=== PATIENT | male | born 1990 | race Caucasian/White ===

== ENCOUNTER 2016-09-17 20:15 | Observation (INO) | payer SELFPAY ==
[~2016-09-17] VITALS: Ht 185.4 cm; Wt 63.9 kg
[2016-09-17 20:36] LABS: CARBON DIOXIDE (BICARBONATE) 28.9 MEQ/L (20-31); MCH 30.7 PG (29.0-34.0); MCHC 31.5 G/DL (30.0-36.0); MCV 97.3 FL (86-99); MEAN PLAT.VOLUME 10.5 uM^3 (9.0-12.4); PLATELET COUNT 243 K/uL (156-360); RBC DIS.WIDTH-CV 13.8 % (11.8-14.6); RBC DIS.WIDTH-SD 49.9 % (39-53); RED BLOOD COUNT 4.11 M/uL (4.00-5.50); WHITE BLOOD COUNT 18.6 K/uL (4.1-10.2)
[2016-09-17 20:45] LABS: CHLORIDE 105 mEq/L (99-109); POTASSIUM 4.7 mEq/L (3.7-5.4); SODIUM 140 mEq/L (136-147)
[2016-09-17 20:47] LABS: GLUCOSE 264 mg/dL (70-99)
[2016-09-17 20:48] LABS: ANION GAP 15 MEQ/L (2-14)
[2016-09-17 20:49] LABS: TOTAL BILIRUBIN 0.6 mg/dL (0.0-1.0)
[2016-09-17 20:50] LABS: SERUM ETHYL ALCOHOL < 10 mg/dL
[2016-09-17 20:51] LABS: ALKALINE PHOSPHATASE 83 IU/L (3-129)
[2016-09-17 20:53] LABS: UREA NITROGEN (BUN) 16 mg/dL (9-23)
[2016-09-17 20:54] LABS: SALICYLATE < 5.0 MG/DL (15-30)
[2016-09-17 20:56] LABS: GFR ESTIMATE (CALCULATED) > 59 mL/min/
[2016-09-17 21:33] LABS: BASE EXCESS -1.6 mEq/L (-3 to +3); BICARBONATE 25.8 mEq/L (22-26); CARBOXY HGB 3.8 % (0-5); COMMENTS - BLOOD GASES C+NA; DEVICE ROOM AIR; METHEMOGLOBIN 1.3 % (0-1.5); PCO2 55 mm Hg (35-45); PO2 73 mm Hg (80-100); SITE RB; TOTAL RESP RATE 12 resp/min; pH 7.28 (7.35-7.45)
[2016-09-18 02:39] LABS: ADD MIUA? NO; BILIRUBIN NEGATIVE; BLOOD NEGATIVE; COLOR YELLOW ((YELLOW)); GLUCOSE (STRIP) 150; KETONES 20; LEUKOCYTES NEGATIVE; NITRITE NEGATIVE; PROTEIN (STRIP) 30; SPECIFIC GRAVITY 1.016 (1.000-1.030); UROBILINOGEN 0.2 MG/DL (0.2-1.0)
[2016-09-18 02:51] LABS: AMPHETAMINE PRESUMPTIVE POSITIVE (500 ng/mL); COCAINE NEGATIVE (150 ng/mL); METHAMPHETAMINE NEGATIVE (500 ng/mL); OPIATES (MORPHINE) NEGATIVE (100 ng/mL); PHENCYCLIDINE NEGATIVE (25 ng/mL); THC CANNABINOIDS PRESUMPTIVE POSITIVE (50 ng/mL)
[2016-09-18 02:52] LABS: ADD MEDTOX COMMENT Y; BARBITURATES NEGATIVE (200 ng/mL); BENZODIAZEPINES PRESUMPTIVE POSITIVE (150 ng/mL); INTERNAL CONTROLS VALID? YES; METHADONE NEGATIVE (200 ng/mL); OXYCODONE NEGATIVE (100 ng/mL); PROPOXYPHENE NEGATIVE (300 ng/mL); TRICYCLIC ANTIDEPRESSANTS NEGATIVE (300 ng/mL)
[2016-09-18 03:27] LABS: BENZODIAZEPINES, URINE SCREEN POSITIVE (200 ng/mL)
[2016-09-18 03:46] VITALS: BP 111/69
[2016-09-18 08:00] VITALS: BP 105/65
[2016-09-18 10:13] LABS: ANION GAP 5 MEQ/L (2-14); CHLORIDE 108 MEQ/L (99-109); GFR ESTIMATE (CALCULATED) > 59 mL/min/; GLUCOSE 82 mg/dL (70-99); POTASSIUM 4.1 MEQ/L (3.7-5.4); SAMPLE HEMOLYSIS CHECK 0; SAMPLE ICTERIC CHECK 0; SAMPLE LIPEMIA CHECK 0; SODIUM 141 MEQ/L (136-147); UREA NITROGEN (BUN) 13 mg/dL (9-23)
[2016-09-18 10:15] LABS: MCH 30.7 PG (29.0-34.0); MCHC 32.2 G/DL (30.0-36.0); MCV 95.4 FL (86-99); MEAN PLAT.VOLUME 10.5 uM^3 (9.0-12.4); PLATELET COUNT 228 K/uL (156-360); RBC DIS.WIDTH-CV 13.9 % (11.8-14.6); RBC DIS.WIDTH-SD 48.5 % (39-53); RED BLOOD COUNT 3.88 M/uL (4.00-5.50)
[2016-09-18 10:20] LABS: WHITE BLOOD COUNT 9.3 K/uL (4.1-10.2)
[2016-09-18 10:56] LABS: HBSG INDEX 0.31
[2016-09-18 10:58] LABS: ANTI-HEPATITIS A VIRUS (IGM) Nonreactive; ANTI-HEPATITIS B CORE (IGM) Nonreactive; HAV INDEX 0.21; HBC IgM INDEX 0.12
[2016-09-18 10:59] LABS: HIV INDEX 0.16; HIV-1/2 AB/AG COMBO Nonreactive
[2016-09-18 11:05] LABS: HPCA INDEX 12.17
== END 2016-09-18 15:07 | disposition home or self-care (01) ==
LOC: EME 20:15 → 4EAST 09-18 01:57 → EDOF 09-18 01:57 → 4EAST 09-18 03:52
PROVIDERS: Emergency Medicine; Family Medicine; Hospitalist
DX: T40.601A Poisoning by unspecified narcotics, accidental (unintentional), initial encounter (principal); J96.01 Acute respiratory failure with hypoxia; E87.2 Acidosis; N17.9 Acute kidney failure, unspecified; F17.200 Nicotine dependence, unspecified, uncomplicated; F19.10 Other psychoactive substance abuse, uncomplicated; B19.20 Unspecified viral hepatitis C without hepatic coma
CPT/HCPCS: 36600; 71020; 80048; 80048 91; 80053; 80074; 81003; 82010; 82803; 84999; 85027; 86703; 99281; 99285; G0378; G0480; J2310; J2405; J7030